=== PATIENT | male | born 1970 | race Caucasian/White ===

== ENCOUNTER → 2017-07-04 | Outpatient (CLI) | payer OTHER | END | disposition home or self-care (01) | LOC: C.PATHSPEC 13:52 | PROVIDERS: ATTEND Dentist Endodontics | DX: K04.7 Periapical abscess without sinus (principal) ==

== ENCOUNTER 2023-12-24 17:54 | Observation (INO) ==
[2023-12-24 18:49] LABS: Basophils # (auto) 0.03 K/uL (0.00-0.20); Basophils % (auto) 0.3 %; Eosinophils # (auto) 0.16 K/uL (0.00-0.50); Eosinophils % (auto) 1.4 %; Immature Granulocytes # (auto) 0.03 K/uL (0.01-0.20); Immature Granulocytes % (auto) 0.3 %; Lymphocytes # (auto) 2.02 K/uL (1.20-3.40); Lymphocytes % (auto) 17.4 %; Mean Corpuscular Hgb Conc 35.7 g/dL (32.0-36.0); Mean Corpuscular Volume 86.8 fL (80.0-100.0); Mean Platelet Volume 8.7 fL (9.4-12.4); Monocytes # (auto) 1.34 K/uL (0.11-0.59); Monocytes % (auto) 11.5 %; Neutrophils # (auto) 8.03 K/uL (1.40-6.50); Neutrophils % (auto) 69.1 %; Platelet Count 247 K/uL (130-400); RDW Coefficient of Variation 11.9 % (11.5-14.5); RDW Standard Deviation 37.8 fL (36.4-46.3); Red Blood Count 4.84 M/uL (4.70-6.10); White Blood Count 11.61 K/ul (4.8-10.8)
[2023-12-24 19:04] LABS: Albumin Globulin Ratio 1.1 (0.9-2); Albumin Level 4.6 gm/dl (3.4-5.0); BUN Creatinine Ratio 12.5 (10-20); Bilirubin,Total 1.2 mg/dl (0.2-1.0); Calcium 9.4 mg/dl (8.6-10.3); Creatinine Clr Calc Pharmacy 86.5 ml/min; Est GFR (African American) 93.2 ml/min; Est GFR (Non-African American) 80.5 ml/min; Potassium 3.5 mmol/L (3.5-5.1); Total Protein 8.6 gm/dl (6.0-8.3)
[2023-12-24] MEDS: OPTIRAY 320 100ml IV ONE (19:32)
[2023-12-24 19:47] LABS: Adenovirus PCR Not Detected (NotDetected); Bordetella parapertussis PCR Not Detected (NotDetected); Bordetella pertussis PCR Not Detected (NotDetected); Chlamydia pneumoniae PCR Not Detected (NotDetected); Coronavirus 229E PCR Not Detected (NotDetected); Coronavirus CoV-2 (COVID19)PCR Not Detected (NotDetected); Coronavirus HKU1 PCR Not Detected (NotDetected); Coronavirus NL63 PCR Not Detected (NotDetected); Coronavirus OC43PCR Not Detected (NotDetected); Human Metapneumovirus PCR Not Detected (NotDetected); Influenza A PCR Not Detected (NotDetected); Influenza B PCR Not Detected (NotDetected); Mycoplasma pneumoniae PCR Not Detected (NotDetected); Parainfluenza Virus 1 PCR Not Detected (NotDetected); Parainfluenza Virus 2 PCR Not Detected (NotDetected); Parainfluenza Virus 3 PCR Not Detected (NotDetected); Parainfluenza Virus 4 PCR Not Detected (NotDetected); Respiratory Syncytial VirusPCR Not Detected (NotDetected); Rhinovirus/Enterovirus PCR Not Detected (NotDetected)
--- NOTE | 2023-12-24 20:09 | Emergency Department Note ---
Impression & Plan Appendicitis with abscess ED Provider Note NAME: SHAVONNE VIGIL AGE: 53 SEX: M : 1970 ARRIVES VIA: Walk-In INFORMANT: Patient, ED PROVIDER(S): Eneida Garcia MD CHIEF COMPLAINT: Right lower quadrant pain HPI: This is a 53-year-old male presenting for right lower quadrant pain x 4 days. Patient has noticed that he developed on Saturday, 4 days ago. Initially had some slight nausea and vomiting. He felt weak with loss of appetite. He has noted that his symptoms actually have improved over the past 1 to 2 days. He has trialed fluids which have helped. He went back to work. He went to an outside physician who ordered an ultrasound of the abdomen which showed possible perforated appendicitis. He has noted low-grade fevers. ROS: See above HPI for pertinent positives & negatives. A total of 10 systems reviewed and were otherwise negative. PAST MEDICAL HISTORY: See Below PAST SURGICAL HISTORY: See Below FAMILY HISTORY: See Below SOCIAL HISTORY: See Below HOME MEDICATIONS: See Below ALLERGIES: See Below VITALS: See Below PHYSICAL EXAMINATION: General: resting comfortably in no acute distress Head: Normocephalic and atraumatic Eyes: Normal inspection, extraocular muscles intact Ear, nose, throat: Normal external exam Neck: Normal range of motion Respiratory: lungs clear to auscultation bilaterally Cardiovascular: Regular rate/rhythm, no murmur GI: Right lower quadrant tenderness to palpation Extremities: nontender, moves all extremities Neuro: The patient awake and alert, appropriately conversive, no focal deficits, symmetric faces Skin: Warm, dry, and intact MEDICAL DECISION MAKING: This is a 53-year-old male present for right lower quadrant pain x 4 days. Patient outpatient ultrasound showing possible ruptured appendicitis. Will do basic blood work and blood culture and CT imaging of the ab/pelvis. -Bloodwork is reviewed showing no significant leukocytosis, anemia, electrolyte or creatinine abnormality -Upper respiratory panel is negative -Upon independent potation, CT imaging does show a structure next to the appendix, possible abscess -Patient CT imaging made stat, on teleradiology portal -I got a call from radiologist that patient has appendicitis with fluid collection concerning for abscess -Patient already on Zosyn -Discussed with Dr. Sorensen, general surgeon who will admit the patient to his service -Patient and family made aware of this finding. Patient was shown his CT imaging at his request. Differential diagnosis: Appendicitis, ruptured appendicitis, SBO, diverticulitis, pyelonephritis ER treatment provided: See below Independent History obtained from: Diagnostics interpreted by me: ECG: None Cardiac Monitoring: An order was placed for continuous cardiac monitoring. The monitor shows a rate of 80 with sinus rhythm. Laboratory studies: As stated above and show below. Imaging studies: See below. Past Med/Surg History Problem List (Updated 12/25/23 @ 11:33 by Eneida Garcia MD) Appendicitis with abscess (Acute) Kidney stones Surgical History (Updated 11/28/21 @ 14:58 by Anushka Yanez RN) S/P hernia repair S/P hardware removal ankle fx S/P ORIF (open reduction internal fixation) fracture ankle fx Social History Smoking Status: Never smoker Second Hand Exposure: No; Do You Dip or Chew Tobacco: No; Tobacco Cessation Education Requested by Patient: No Hx Alcohol Use: No Hx Substance Use: No Preferred Language: Swedish Communication Ability: Effective Forestry Technical Officer Required: No Beliefs That Will Affect Care: None marital status: Current Living Situation: Spouse and Family current occupational status: employed 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 Feels Safe at Home: Yes Assistive Devices: None Allergies Allergies Allergy/AdvReac Type Severity Reaction Status Date / Time No Known Allergies Allergy Verified 12/24/23 20:51 Home Meds Home Medications Medication Instructions Recorded Confirmed No Known Home Medications 02/12/22 12/24/23 Results & Data (ED) Vital Signs Vital Signs - 24 hr 12/24/23 18:02 12/24/23 18:25 12/24/23 18:33 Temperature 36.8 C Temperature Source Temporal Artery Scan Pulse Rate 90 88 Pulse Rate [Apical] Respiratory Rate 18 Respiratory Effort / Characteristics Non-Labored Spontaneous Respiratory Depth Normal Respiratory Pattern Blood Pressure 117/73 Blood Pressure [Right Arm] Blood Pressure Mean 87 Blood Pressure Mean [Right Arm] Pulse Oximetry 96 98 Oxygen Delivery Method Room Air Room Air Sepsis Recent Fever Within 48 Hours No Sepsis New/Unexplained Change in Mental Status N/A Sepsis Action Taken by Nursing No Action Required 12/24/23 20:01 12/24/23 21:13 Temperature Temperature Source Pulse Rate 85 Pulse Rate [Apical] 91 H Respiratory Rate 18 18 Respiratory Effort / Characteristics Non-Labored Respiratory Depth Normal Respiratory Pattern Regular Blood Pressure 138/65 Blood Pressure [Right Arm] 147/83 H Blood Pressure Mean Blood Pressure Mean [Right Arm] 104 Pulse Oximetry 96 97 Oxygen Delivery Method Room Air Room Air Sepsis Recent Fever Within 48 Hours Sepsis New/Unexplained Change in Mental Status Sepsis Action Taken by Nursing Laboratory Data 12/24/23 18:25 12/24/23 18:25 Lab Results 12/24/23 12/24/23 Range/Units 18:20 18:25 WBC 11.61 H (4.8-10.8) K/ul RBC 4.84 (4.70-6.10) M/uL Hgb 15.0 (14.0-18.0) g/dl Hct 42.0 (42.0-52.0) % MCV 86.8 (80.0-100.0) fL MCH 31.0 (25.0-34.0) pg MCHC 35.7 (32.0-36.0) g/dL RDW Std Deviation 37.8 (36.4-46.3) fL RDW Coeff of Lynette 11.9 (11.5-14.5) % Plt Count 247 (130-400) K/uL MPV 8.7 L (9.4-12.4) fL Immature Gran % (Auto) 0.3 % Neut % (Auto) 69.1 % Lymph % (Auto) 17.4 % [place] % (Auto) 11.5 % Eos % (Auto) 1.4 % Baso % (Auto) 0.3 % Neut # (Auto) 8.03 H (1.40-6.50) K/uL Lymph # (Auto) 2.02 (1.20-3.40) K/uL [place] # (Auto) 1.34 H (0.11-0.59) K/uL Eos # (Auto) 0.16 (0.00-0.50) K/uL Baso # (Auto) 0.03 (0.00-0.20) K/uL Immature Gran # (Auto) 0.03 (0.01-0.20) K/uL Sodium 137 (136-145) mmol/L Potassium 3.5 (3.5-5.1) mmol/L Chloride 99 (98-107) mmol/L Carbon Dioxide 28 (21-32) mmol/L Anion Gap 10 (3-11) BUN 13 (6-23) mg/dl Creatinine 1.04 (0.6-1.4) mg/dl Est Cr Clr Drug Dosing 86.5 ml/min Est GFR ( Amer) 93.2 ml/min Est GFR (Non-Af Amer) 80.5 ml/min BUN/Creatinine Ratio 12.5 (10-20) Glucose 98 (70-99(Fasting)) mg/dl Calcium 9.4 (8.6-10.3) mg/dl Total Bilirubin 1.2 H (0.2-1.0) mg/dl AST 17 (13-39) U/L ALT 14 (7-52) U/L Alkaline Phosphatase 85 (34-104) U/L Total Protein 8.6 H (6.0-8.3) gm/dl Albumin 4.6 (3.4-5.0) gm/dl Globulin 4.0 (2.5-4.0) gm/dl Albumin/Globulin Ratio 1.1 (0.9-2) Lipase 22 (11-82) U/L Adenovirus (PCR) Not Detected (NotDetected) B. pertussis DNA (PCR) Not Detected (NotDetected) B.parapertussis DNA PCR Not Detected (NotDetected) C. pneumoniae DNA (PCR) Not Detected (NotDetected) Coronavirus OC43 (PCR) Not Detected (NotDetected) Coronavirus HKU1 (PCR) Not Detected (NotDetected) Coronavirus 229E (PCR) Not Detected (NotDetected) SARS-CoV-2 (PCR) Not Detected (NotDetected) Coronavirus NL63 (PCR) Not Detected (NotDetected) Human Metapneumovir PCR Not Detected (NotDetected) Influenza Type A (PCR) Not Detected (NotDetected) Influenza Type B (PCR) Not Detected (NotDetected) M. pneumoniae (PCR) Not Detected (NotDetected) Parainfluenza 1 (PCR) Not Detected (NotDetected) Parainfluenza 2 (PCR) Not Detected (NotDetected) Parainfluenza 3 (PCR) Not Detected (NotDetected) Parainfluenza 4 (PCR) Not Detected (NotDetected) RSV (PCR) Not Detected (NotDetected) Entero/Rhino (PCR) Not Detected (NotDetected) Administered Medications Lactated Ringer's (Lr) 1,000 mls @ 125 mls/hr IV .Q8H SUNNY Stop: 01/23/24 23:36 Last Admin: 12/25/23 07:08 Dose: 125 mls/hr Documented By: Infusion: 12/25/23 07:08 Dose: Infused Documented By: Admin: 12/25/23 00:17 Dose: 125 mls/hr Documented By: RUBY Piperacillin Sod/Tazobactam Sod (Zosyn) 4.5 gm in 100 mls @ 25 mls/hr IV Q8H SUNNY; Protocol Stop: 01/04/24 01:59 Last Admin: 12/25/23 09:24 Dose: 25 mls/hr Documented By: Infusion: 12/25/23 06:11 Dose: Infused Documented By: Admin: 12/25/23 02:04 Dose: 25 mls/hr Documented By: RUBY Ibuprofen (Ibuprofen 200 Mg Tab) 400 mg PO Q6H PRN PRN Reason: Pain & Pre PT Stop: 01/23/24 23:36 Last Admin: 12/25/23 02:09 Dose: 400 mg Documented By: RUBY Discontinued Medications Bupivacaine HCl/Epinephrine Bitart (Bupivacaine/Epinephrine 0.5% Mpf 1:200,000 30 Ml Vial) Confirm Administered Dose 30 ml .ROUTE .STK-MED ONE Stop: 12/24/23 21:01 Last Admin: 12/25/23 01:09 Dose: Not Given Documented By: SHAISTA Piperacillin Sod/Tazobactam Sod (Zosyn) 4.5 gm in 100 mls @ 200 mls/hr IV NOW ONE Stop: 12/24/23 21:16 Last Infusion: 12/24/23 23:39 Dose: Infused Documented By: Admin: 12/24/23 20:57 Dose: 200 mls/hr Documented By: SAUNDRA Ioversol (Optiray 320 100ml) 94 ml IV ONCE ONE Stop: 12/24/23 19:32 Last Admin: 12/24/23 19:32 Dose: 94 ml Documented By: VALDEMAR Discharge Plan Visit Data Chief Complaint: Abdominal Pain Stated Complaint: RUPTURED APPENDIX POSSIBLE ED Provider: Eneida Garcia Discharge Problem: Appendicitis with abscess Patient Disposition: Admitted As Inpatient Discharge Instructions Interventions: ED Discharge Assessment Last Done: 12/24/23 21:13
--- NOTE | 2023-12-24 20:40 | CT Scan Report ---
Exam(s): CT ABDOMEN + PELVIS With Contrast IV Amt: 94 ML OPTIRAY 320 EXAM: CT Abdomen and Pelvis With Intravenous Contrast CLINICAL HISTORY: Reason for exam: US showing ruptured appendix, abd pain, fever. TECHNIQUE: Axial computed tomography images of the abdomen and pelvis with intravenous contrast. CTDI is 24 mGy and DLP is 1146 mGy-cm. Automated exposure control was utilized for the study. A dose lowering technique was utilized adhering to the principles of ALARA. CONTRAST: Patient received 94 ML OPTIRAY 320 of IV contrast COMPARISON: Appendix ultrasound of the same date FINDINGS: Lung bases: Unremarkable. ABDOMEN: Liver: Unremarkable. No mass. Gallbladder and bile ducts: Unremarkable. No calcified stones. No ductal dilation. Pancreas: Unremarkable. No mass. No ductal dilation. Spleen: Unremarkable. No splenomegaly. Adrenals: Unremarkable. No mass. Kidneys and ureters: Unremarkable. No solid mass. No hydronephrosis. Stomach and bowel: Inflamed terminal ileum, presumed reactive. No bowel obstruction. No mucosal thickening. PELVIS: Appendix: Dilated, thick-walled, inflamed appendix measuring up to 9 mm in diameter. Bladder: Unremarkable. No mass. Reproductive: Unremarkable as visualized. ABDOMEN and PELVIS: Intraperitoneal space: Periappendiceal fluid collection measuring up to 4 cm. Right lower quadrant fat stranding. No free air. Bones/joints: No acute fracture. No dislocation. Soft tissues: Unremarkable. Vasculature: Unremarkable. No abdominal aortic aneurysm. Lymph nodes: Unremarkable. No enlarged lymph nodes. IMPRESSION: 1. Dilated, thick-walled, inflamed appendix measuring up to 9 mm in diameter. Confluent surrounding fat stranding. No free air. Periappendiceal fluid collection measuring up to 4 cm, potentially abscess. 2. Inflamed terminal ileum, presumed reactive. Communications: Call Doctor Other Electronically signed by: Emeli Banks M.D. 12/24/23 20:39 PM
[2023-12-24] MEDS: PIPERACILLIN/TAZOBACTAM 4.5 GM/100 ML BAG IV ONE (20:57)
[2023-12-24] MEDS ORDERED: LIDOCAINE 2% 2 ML VIAL/AMP(20MG/ML) INFIL ONE (21:25)
[2023-12-24] MEDS ORDERED: PROPOFOL IV EMULSION 10 MG/ML 20 ML VIAL IV ONE (21:25)
[2023-12-24] MEDS ORDERED: ROCURONIUM BROMIDE 10 MG/ML 5 ML VIAL IV ONE (21:25)
[2023-12-24] MEDS ORDERED: DEXAMETHASONE SOD INJ 4 MG/ML VIAL ONE (21:25)
[2023-12-24] MEDS ORDERED: ONDANSETRON INJ 2 MG/ML 2 ML VIAL ONE (21:25)
[2023-12-24] MEDS ORDERED: MIDAZOLAM HCL 1 MG/ML 2ML VIAL ONE (21:26)
[2023-12-24] MEDS ORDERED: fentaNYL citrate PF 100 MCG/2 ML VIAL ONE (21:26)
--- NOTE | 2023-12-24 21:41 | History & Physical Report ---
Date of Service December 24, 2023 Assessment & Plan (1) Appendicitis with abscess: Plan: Complicated appendictis IV abx IVf to OR for lap appendectomy Present on Admission?: Yes History of Present Illness Primary Care Provider: [facility] This is a 53-year-old male with RLQ pain. He has had some associated nausea and vomiting. He had an outpatient ultrasound of the abdomen which showed possible perforated appendicitis. He has noted low-grade fevers. CT scan shows appendicitis with 4 cm fluid collection. Allergies Allergy/AdvReac Type Severity Reaction Status Date / Time No Known Allergies Allergy Verified 12/24/23 20:51 Home Medications Medication Instructions Recorded Confirmed Type No Known Home Medications 02/12/22 12/24/23 History Past Med/Surg History Problem List (Updated 12/24/23 @ 21:42 by John Sorensen MD) Appendicitis with abscess Kidney stones Surgical History (Updated 11/28/21 @ 14:58 by Anushka Yanez RN) S/P hernia repair S/P hardware removal ankle fx S/P ORIF (open reduction internal fixation) fracture ankle fx Social History Smoking Status: Never smoker Second Hand Exposure: No; Do You Dip or Chew Tobacco: No; Hx Alcohol Use: Yes Hx Substance Use: No Preferred Language: Tanzanian Communication Ability: Effective Pe Manager Required: No Beliefs That Will Affect Care: None marital status: Current Living Situation: Spouse current occupational status: employed 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 Feels Safe at Home: Yes Assistive Devices: Glasses Review of Systems + fever and + anorexia; no chills no problem reported no problem reported no cough and no dyspnea no chest pain + abdominal pain, + nausea and + vomiting; no change in bowel habits no dysuria no back pain no problem reported no localized weakness and no generalized weakness no behavioral changes no easy bleeding and no easy bruising Physical Exam Constitutional: WD/WN, vitals as above Eyes: PERRL, conjunctivae normal, anicteric sclerae ENMT: external ear and nose normal, oropharynx normal Neck: trachea midline Respiratory: normal respiratory effort, lungs clear to auscultation Cardiovascular: RRR, no murmur, no edema Gastrointestinal (Abdomen): Inspection/Auscultation: abdomen normal to inspection and normal bowel sounds; abdomen not distended Percussion/ Palpation: + abdomen tender and abdomen soft; no guarding and abdomen not rigid Musculoskeletal: Head/Neck/Chest: normocephalic and head atraumatic Skin: no rashes, warm and dry Results & Data Vital Signs (Past 12 Hours) Vital Signs Temp Pulse Pulse Resp BP BP Pulse Ox 12/24/23 21:13 85 18 138/65 97 12/24/23 20:01 91 H 18 147/83 H 96 12/24/23 18:33 88 12/24/23 18:25 98 12/24/23 18:02 36.8 C 90 18 117/73 96 O2 Del Method 12/24/23 21:13 Room Air 12/24/23 20:01 Room Air 12/24/23 18:33 12/24/23 18:25 Room Air 12/24/23 18:02 Room Air Diagnostic Findings EXAM: CT Abdomen and Pelvis With Intravenous Contrast CLINICAL HISTORY: Reason for exam: US showing ruptured appendix, abd pain, fever. TECHNIQUE: Axial computed tomography images of the abdomen and pelvis with intravenous contrast. CTDI is 24 mGy and DLP is 1146 mGy-cm. Automated exposure control was utilized for the study. A dose lowering technique was utilized adhering to the principles of ALARA. CONTRAST: Patient received 94 ML OPTIRAY 320 of IV contrast COMPARISON: Appendix ultrasound of the same date FINDINGS: Lung bases: Unremarkable. ABDOMEN: Liver: Unremarkable. No mass. Gallbladder and bile ducts: Unremarkable. No calcified stones. No ductal dilation. Pancreas: Unremarkable. No mass. No ductal dilation. Spleen: Unremarkable. No splenomegaly. Adrenals: Unremarkable. No mass. Kidneys and ureters: Unremarkable. No solid mass. No hydronephrosis. Stomach and bowel: Inflamed terminal ileum, presumed reactive. No bowel obstruction. No mucosal thickening. PELVIS: Appendix: Dilated, thick-walled, inflamed appendix measuring up to 9 mm in diameter. Bladder: Unremarkable. No mass. Reproductive: Unremarkable as visualized. ABDOMEN and PELVIS: Intraperitoneal space: Periappendiceal fluid collection measuring up to 4 cm. Right lower quadrant fat stranding. No free air. Bones/joints: No acute fracture. No dislocation. Soft tissues: Unremarkable. Vasculature: Unremarkable. No abdominal aortic aneurysm. Lymph nodes: Unremarkable. No enlarged lymph nodes. IMPRESSION: 1. Dilated, thick-walled, inflamed appendix measuring up to 9 mm in diameter. Confluent surrounding fat stranding. No free air. Periappendiceal fluid collection measuring up to 4 cm, potentially abscess. 2. Inflamed terminal ileum, presumed reactive.
--- NOTE | 2023-12-24 21:43 | Anesthesiology Consultation ---
Date of Service December 24, 2023 Assessment & Plan Chart Review Chart Review: Acceptable Risk for Surgery Consults Requested none History Surgery Operation Date: 12/24/23 20:00 Proposed Procedures p Laparoscopic Appendectomy - John Sorensen MD Height/Weight Height: 5 ft 8 in Weight: 87.8 kg Allergies Allergy/AdvReac Type Severity Reaction Status Date / Time No Known Allergies Allergy Verified 12/24/23 20:51 Medications Home Medications Medication Instructions Recorded Confirmed Last Taken No Known Home Medications 02/12/22 12/24/23 Unknown Past Surgical History Surgical History (Updated 11/28/21 @ 14:58 by Anushka Yanez RN) S/P hernia repair S/P hardware removal ankle fx S/P ORIF (open reduction internal fixation) fracture ankle fx Social History Smoking Status: Never smoker Do You Dip or Chew Tobacco: No Hx Alcohol Use: Yes alcohol intake frequency: holidays/special occasions only Hx Substance Use: No substance use type: does not use Physical Exam Vital Signs Last Vital Signs Temp 36.8 C 12/24/23 18:02 Pulse 85 12/24/23 21:13 Resp 18 12/24/23 21:13 BP 138/65 12/24/23 21:13 Pulse Ox 97 12/24/23 21:13 O2 Del Method Room Air 12/24/23 21:13 Testing Laboratory Results 12/24/23 18:25 12/24/23 18:25
[2023-12-24] MEDS ORDERED: ONDANSETRON INJ 2 MG/ML 2 ML VIAL IV PRN ×2 (21:54→23:37)
[2023-12-24] MEDS ORDERED: PROMETHAZINE HCL 12.5 MG in SODIUM CHLORIDE 0.9% 50 ML IV PRN (21:54)
[2023-12-24] MEDS ORDERED: HYDROmorphone INJ 2 MG/ML SYR/VIAL IV PRN (21:54)
[2023-12-24] MEDS ORDERED: fentaNYL citrate PF 100 MCG/2 ML VIAL IV PRN (21:54)
[2023-12-24] MEDS ORDERED: ePHEDrine sulfate 50 MG/ML AMP IV PRN (21:54)
[2023-12-24] MEDS ORDERED: ATROPINE SULFATE 0.1 MG/ML 10ML SYR IV PRN (21:54)
[2023-12-24] MEDS ORDERED: SUGAMMADEX SODIUM 200 MG/2 ML VIAL IV ONE (22:36)
--- NOTE | 2023-12-24 22:51 | Operative Report ---
Post Operative Report Pre & Post Diagnosis Operation Date: 12/24/23 20:00 Gangrenous appendicitis with right lower quadrant phlegmon, no abscess I identified the patient and participated in the time-out.: Yes Procedure Operation Date: 12/24/23 20:00 Laparoscopic appendectomy Surgeon John Sorensen MD Chemical Sales Representative None Estimated Blood Loss 15 Findings Consistent with Post-Op Diagnosis Gangrenous appendicitis with right lower quadrant phlegmon Specimens Appendix to pathology Drains None Anesthesia Type General Indications This is a 53-year-old male who was seen in the ED after workup for some right lower quadrant abdominal pain. CT scan shows an appendicitis with possible abscess. I discussed in detail with this and recommended laparoscopic appendectomy. We went over the risks in detail. Description of Procedure The patient was taken to the OR and underwent excellent general anesthesia. Their abdomen was prepped and draped in normal sterile fashion. A transverse supraumbilical incision was made, towel clamps were used to create tension on the abdominal wall as a Varess needle was inserted gently into the peritoneal cavity. Good pneumoperitoneum was achieved to about 15 mmHg pressure. Once this was done, a visualized 11 port was placed in the supraumbilical position. A 12 mm left lower quadrant port , a 5mm suprapubic port , and a 5mm right upper quadrant port were placed in normal fashion. Patient was then placed in head down and rolled to the left. A good diagnostic lap was performed. They had obvious gangrenous acute appendicitis with a phlegmon. The cecum was grasped with an atraumatic grasper. A grasper was then was then used to grasp the tip of the appendix, there was no pus after breaking up the phlegmon with hydro- dissection.. The mesoappendix was splayed open and a harmonic scalpel was used to take down the mesoappendix. The base of the appendix was identified and an Endo DEMI stapler was used to transect the appendix at its base. A Endobag was then inserted through the left lower quadrant port and the appendix was placed into the bag, The bag was removed through the left lower quadrant port. The appendix was then sent for pathologic evaluation. Pneumoperitoneum was re- established and the 12 mm port was replaced. Saline was then used to irrigate the abdomen. There was no active bleeding nor any other abnormalities noted in the abdomen. Patient was then placed back in neutral position, the ports were removed and the pneumoperitoneum decompressed. The 12mm port fascia was then closed using a 0 Vicryl. The skin was then anesthetized with 0.5% Marcaine with epinephrine local. Interrupted Vicryl is used to close the skin. Dermabond was used to reinforce the incisions. Sterile dressings were applied. The patient tolerated procedure without complications was sent to the postop recovery period of observation. They will be sent to the floor for the rest of their care. I attest to the content of the Intraoperative Record and any orders documented therein. Any exceptions are noted below.
--- NOTE | 2023-12-24 23:13 | Anesthesiology Progress Note ---
Date of Service December 24, 2023 Anesthesia Post Procedure Vital Signs Vital Signs: Temp Pulse Pulse Resp BP BP Pulse Ox 12/24/23 22:58 36.9 C 86 18 127/67 100 12/24/23 21:13 85 18 138/65 97 12/24/23 20:01 91 H 18 147/83 H 96 12/24/23 18:33 88 12/24/23 18:25 98 12/24/23 18:02 36.8 C 90 18 117/73 96 O2 Del Method O2 Flow Rate 12/24/23 22:58 Oxymask 4 12/24/23 21:13 Room Air 12/24/23 20:01 Room Air 12/24/23 18:33 12/24/23 18:25 Room Air 12/24/23 18:02 Room Air Transfer of Care Handoff Completed per policy Notes Mental Status: alert / awake / arousable and participated in evaluation Patient Amnestic to Procedure: Yes Nausea / Vomiting: adequately controlled Pain: adequately controlled Airway Patency, RR, SpO2: stable & adequate BP & HR: stable & adequate Hydration State: stable & adequate Anesthetic Complications: no major complications apparent
[2023-12-24] MEDS ORDERED: MoRPHine SULFATE 4 MG/ML 1 ML CARP\\VIAL IV PRN (23:37)
[2023-12-24] MEDS ORDERED: PROMETHAZINE 25 MG/51 ML BAG IV PRN (23:37)
[2023-12-24] MEDS ORDERED: oxyCODONE/ACETAMINOPHEN 5mg/325mg TAB PO PRN ×2 (23:37)
[2023-12-24] MEDS ORDERED: ACETAMINOPHEN 325 MG TAB PO PRN (23:37)
[2023-12-24] MEDS ORDERED: MoRPHine SULFATE 2 MG/ML CARP IV PRN (23:37)
[2023-12-25] MEDS: LACTATED RINGER'S 1,000 ML IV SCH (00:17)
[2023-12-25] MEDS: BUPIVACAINE/EPINEPHRINE 0.5% MPF 1:200,000 30 ML VIAL ONE (01:09)
[2023-12-25] MEDS: PIPERACILLIN/TAZOBACTAM 4.5 GM/100 ML BAG IV SCH (02:04)
[2023-12-25] MEDS: IBUPROFEN 200 MG TAB PO PRN (02:09)
--- NOTE | 2023-12-25 08:34 | Surgery Progress Note ---
Date of Service December 25, 2023 Assessment & Plan (1) Appendicitis with abscess: Plan: POD # 1 s/p lap appy avss postop pain controlled no n,v Plan: advance diet as tolerated ambulate continue zosyn likely home this afternoon Discussed with Dr. strong who agrees with above. Admission and Anticipated Discharge Date Admission Date: December 24, 2023 Subjective feeling good, minimal pain, soreness at incision sites. controlled with ibuprofen no n,v tolerating liquids urinating without difficulty no chest pain or shortness of breath Physical Exam Constitutional: WD/WN, vitals as above cooperative and comfortable; no acute distress and not ill appearing Gastrointestinal (Abdomen): Inspection/Auscultation: abdomen normal to inspection and + abdominal surgical incision (c/d/i with dermabond); abdomen not distended Percussion/Palpation: + abdomen tender (mild at incision sites) and abdomen soft; no guarding, abdomen not rigid and abdomen not firm Skin: no rashes, warm and dry Results & Data Vital Signs (Past 12 Hours) Vital Signs Temp Pulse Pulse Resp BP BP Pulse Ox 12/25/23 07:10 12/25/23 04:18 36.8 C 12/25/23 03:25 37.7 C H 80 18 122/70 95 12/25/23 00:59 36.7 C 80 16 131/75 93 12/24/23 23:38 36.7 C 80 16 131/75 93 12/24/23 23:18 36.6 C 82 16 141/76 H 94 12/24/23 23:08 37.1 C 86 18 119/75 94 12/24/23 22:58 36.9 C 86 18 127/67 100 12/24/23 21:13 85 18 138/65 97 O2 Del Method O2 Flow Rate 12/25/23 07:10 Room Air 12/25/23 04:18 12/25/23 03:25 Room Air 12/25/23 00:59 Room Air 12/24/23 23:38 Room Air 12/24/23 23:18 Room Air 12/24/23 23:08 Room Air 12/24/23 22:58 Oxymask 4 12/24/23 21:13 Room Air Laboratory Results 12/24/23 12/24/23 Range/Units 18:25 18:20 WBC 11.61 H (4.8-10.8) K/ul RBC 4.84 (4.70-6.10) M/uL Hgb 15.0 (14.0-18.0) g/dl Hct 42.0 (42.0-52.0) % MCV 86.8 (80.0-100.0) fL MCH 31.0 (25.0-34.0) pg MCHC 35.7 (32.0-36.0) g/dL RDW Std Deviation 37.8 (36.4-46.3) fL RDW Coeff of Lynette 11.9 (11.5-14.5) % Plt Count 247 (130-400) K/uL MPV 8.7 L (9.4-12.4) fL Immature Gran % (Auto) 0.3 % Neut % (Auto) 69.1 % Lymph % (Auto) 17.4 % Norman % (Auto) 11.5 % Eos % (Auto) 1.4 % Baso % (Auto) 0.3 % Neut # (Auto) 8.03 H (1.40-6.50) K/uL Lymph # (Auto) 2.02 (1.20-3.40) K/uL Norman # (Auto) 1.34 H (0.11-0.59) K/uL Eos # (Auto) 0.16 (0.00-0.50) K/uL Baso # (Auto) 0.03 (0.00-0.20) K/uL Immature Gran # (Auto) 0.03 (0.01-0.20) K/uL Sodium 137 (136-145) mmol/L Potassium 3.5 (3.5-5.1) mmol/L Chloride 99 (98-107) mmol/L Carbon Dioxide 28 (21-32) mmol/L Anion Gap 10 (3-11) BUN 13 (6-23) mg/dl Creatinine 1.04 (0.6-1.4) mg/dl Est Cr Clr Drug Dosing 86.5 ml/min Est GFR ( Amer) 93.2 ml/min Est GFR (Non-Af Amer) 80.5 ml/min BUN/Creatinine Ratio 12.5 (10-20) Glucose 98 (70-99(Fasting)) mg/dl Calcium 9.4 (8.6-10.3) mg/dl Total Bilirubin 1.2 H (0.2-1.0) mg/dl AST 17 (13-39) U/L ALT 14 (7-52) U/L Alkaline Phosphatase 85 (34-104) U/L Total Protein 8.6 H (6.0-8.3) gm/dl Albumin 4.6 (3.4-5.0) gm/dl Globulin 4.0 (2.5-4.0) gm/dl Albumin/Globulin Ratio 1.1 (0.9-2) Lipase 22 (11-82) U/L Adenovirus (PCR) Not Detected (NotDetected) B. pertussis DNA (PCR) Not Detected (NotDetected) B.parapertussis DNA PCR Not Detected (NotDetected) C. pneumoniae DNA (PCR) Not Detected (NotDetected) Coronavirus OC43 (PCR) Not Detected (NotDetected) Coronavirus HKU1 (PCR) Not Detected (NotDetected) Coronavirus 229E (PCR) Not Detected (NotDetected) SARS-CoV-2 (PCR) Not Detected (NotDetected) Coronavirus NL63 (PCR) Not Detected (NotDetected) Human Metapneumovir PCR Not Detected (NotDetected) Influenza Type A (PCR) Not Detected (NotDetected) Influenza Type B (PCR) Not Detected (NotDetected) M. pneumoniae (PCR) Not Detected (NotDetected) Parainfluenza 1 (PCR) Not Detected (NotDetected) Parainfluenza 2 (PCR) Not Detected (NotDetected) Parainfluenza 3 (PCR) Not Detected (NotDetected) Parainfluenza 4 (PCR) Not Detected (NotDetected) RSV (PCR) Not Detected (NotDetected) Entero/Rhino (PCR) Not Detected (NotDetected)
[2023-12-25 12:14] VITALS: BP 118/64; PULSE 84; RESP 24; TEMP 99.3; O2SAT 95
--- NOTE | 2023-12-25 16:31 | Discharge Summary ---
Date of Service December 25, 2023 Admission HPI Per Admitting Provider This is a 53-year-old male with RLQ pain. He has had some associated nausea and vomiting. He had an outpatient ultrasound of the abdomen which showed possible perforated appendicitis. He has noted low-grade fevers. CT scan shows appendicitis with 4 cm fluid collection. Principal Diagnosis Acute gangrenous appendicitis Discharge Exam Constitutional WD/WN, vitals as above cooperative and comfortable; no acute distress and not ill appearing Respiratory normal respiratory effort; no respiratory distress and no labored breathing Gastrointestinal (Abdomen) Inspection/Auscultation: abdomen normal to inspection and + abdominal surgical incision (c/d/i with dermabond); abdomen not distended Percussion/Palpation: + abdomen tender (mild at incision sites and RLQ appropriate postop) and abdomen soft; no guarding and abdomen not rigid Skin no rashes, warm and dry Psychiatric A+Ox3, euthymic affect Discharge Data Allergies Allergy/AdvReac Type Severity Reaction Status Date / Time No Known Allergies Allergy Verified 12/24/23 20:51 Consultations 12/24/23 20:49 ED Decision to Admit Stat Procedures Performed Operation Date: 12/24/23 21:30 Actual Procedures p Laparoscopic Appendectomy - John Sorensen MD Ordered Studies 12/24/23 18:09 CT abd pelvis IV con only Stat Hospital Course (1) Appendicitis with abscess: Patient taken to operating room for laparoscopic appendectomy on 12/24/[address] Sorensen. Patient found to have acute gangrenous appendicitis with phlegmon but no abscess. Patient tolerated procedure without difficulty and trasnferred to med/surg floor for postoperative care. Diet and activity as tolerated. Pain management as needed. Patient was doing well POD # 1 and discharged home in stable condition. Total Time Total Time Spent Total Time Spent (In Minutes): 30 minutes Total Time Includes: Examination of the Patient, Discharge Planning and Medication Reconciliation Discharge Plan Discharge Items Patient Disposition: Home - Self-Care Reason For Visit: APPENDICITIS Discharge Diagnosis: acute gangrenous appendicitis Activity: Per Instructions section Non-emergency contact: Primary Care Provider and Surgeon Call non-emergency contact if: you have any medication questions, your pain is not controlled, your pain is concerning for you, you have a fever, your temperature is above 101, your wound has increased redness, your wound has increased drainage and your wound pain has increased Follow-up/Referrals: John Sorensen MD [Physician] - [facility] [Primary Care Provider] - Diet: Regular Addtl Attending Provider Instructions: Post-Surgical ~Discharge Instructions Activity Recommendations: - lifting limitation: (20 pounds for 3-4 weeks), - exercise/sex/sports limit: (nonstrenuous for 2 weeks), - driving or machine use limit: (none for 1 week or until pain free and no longer taking narcotic pain medication), - Shower/bathe limit: (may shower, no submerging incisions underwater for 2 weeks (no swimming, bathing, hot tubs)) Diet: - Resume previous diet SPECIAL CARE INSTRUCTIONS: - May shower. Let water run over area and pat dry. - Leave surgical glue on incisions, this will fall off on its own. Do not pick at it. - Call the surgeon's office with any questions or concerns - - (ex. temperature higher than 101 degrees F, excessive bleeding or pain). MEDICATIONS: - Resume previous medications unless instructed otherwise by your surgeon. - May alternate extra strength Tylenol and ibuprofen as needed for mild to moderate pain - 650 mg every 6 hours as needed - Ibuprofen 600 mg every 6 hours as needed (take with food) - Recommend daily-twice a day stool softener (Colace) while taking narcotic pain medication to prevent constipation and straining. Drink plenty of water daily. FOLLOW UP VISIT: - If not already scheduled, please call the office to schedule a two week follow-up appointment. Office number Pending Studies at Discharge: Yes (appendix pathology, will be reviewed at postop visit) Stand-Alone Forms: My [facility] [employer], Smoking Cessation Medications and DC Order Prescriptions: New amoxicillin-pot clavulanate 875-125 mg tablet 1 tab PO BID Qty: 14 0RF No Action No Known Home Medications Discharge Orders: Discharge Order (Routine); Ordered 12/25/23 Ordered By: Gayle Ayala/Other Patient Handouts: What Is Appendicitis? Admission Data Admit Date/Time: 12/24/23 22:54 Attending Provider: John Sorensen Admit Provider: John Sorensen Primary Care Provider: [facility] Other Providers: John Sorensen Other Interventions: Discharge Summary Assessment (RN) Last Done: 12/25/23 15:24
== END 2023-12-25 16:50 | disposition home or self-care (01) ==
LOC: ED 17:54 → OR 21:13 → ED 21:13 → INTOOBSV 22:54 → 3N 22:54